=== PATIENT | female | born 1970 | race Caucasian/White ===

== ENCOUNTER 2023-07-05 17:50 | Emergency (ER) | payer MEDICAID ==
[~2023-07-05] VITALS: Ht 170.2 cm; Wt 86.4 kg
[2023-07-05 19:01] VITALS: BP 115/85; PULSE 105; RESP 18; TEMP 98; O2SAT 100
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
--- NOTE | 2023-07-05 22:21 | NUR ---
PATIENT REQUESTING TO LEAVE. LOAN ARRANGED FOR PATIENT.
== END 2023-07-05 22:28 | disposition left against medical advice (07) ==
LOC: ER 17:50 → EEVIPCON 17:50 → ER 22:28
DX: T76.21XA Adult sexual abuse, suspected, initial encounter (principal); F17.200 Nicotine dependence, unspecified, uncomplicated; F31.9 Bipolar disorder, unspecified; F15.10 Other stimulant abuse, uncomplicated; Z56.0 Unemployment, unspecified; Z59.00 Homelessness unspecified
CPT/HCPCS: 99281

== ENCOUNTER 2023-07-06 17:31 | Emergency (ER) | payer MEDICAID ==
[~2023-07-06] VITALS: Ht 170.2 cm; Wt 70.4 kg
[2023-07-06 20:25] LABS: BASOPHILS # (AUTO) 0.1 X10'3 (0-0.2); EOSINOPHILS # (AUTO) 0.2 X10'3 (0-0.9); EOSINOPHILS % (AUTO) 1.7 % (0-6); HEMOGLOBIN 13.6 g/dl (12.0-16.0); LYMPHOCYTES % (AUTO) 32.6 % (21-51); MEAN CORPUSCULAR HEMOGLOBIN 30.2 PG (27.0-31.0); MEAN CORPUSCULAR HGB CONC 33.9 g/dL (33.0-36.5); MEAN CORPUSCULAR VOLUME 88.9 FL (78-98); MEAN PLATELET VOLUME 8.1 FL (7.4-10.4); MONOCYTES # (AUTO) 0.6 X10'3 (0-0.9); MONOCYTES % (AUTO) 5.9 % (2-12); NEUTROPHILS # (AUTO) 5.5 X10'3 (1.8-7.7); NEUTROPHILS % (AUTO) 58.8 % (42-75); PLATELET COUNT 235 X10'3 (140-440); WHITE BLOOD COUNT 9.3 X10'3 (4.5-11.0)
[2023-07-06 20:26] LABS: ALBUMIN 3.4 G/DL (3.4-5.0); ALBUMIN/GLOBULIN RATIO 1.1 (1.1-1.5); ANION GAP 11 (8-16); ASPARTATE AMINO TRANSFERASE 11 U/L (10-37); BILIRUBIN,TOTAL 0.2 MG/DL (0.1-1.0); BLOOD UREA NITROGEN 8 MG/DL (7-18); BUN/CREATININE RATIO 8.3 (10.0-20.0); CALCIUM 8.9 MG/DL (8.5-10.1); CHLORIDE 101 MMOL/L (99-107); CREATININE 0.96 MG/DL (0.40-0.90); GLUCOSE 211 MG/DL (70-104); SODIUM 139 MMOL/L (135-145); TOTAL CARBON DIOXIDE 27.3 MMOL/L (24-32); TOTAL PROTEIN 6.6 G/DL (6.4-8.2); eGFR 61 ML/MIN
[2023-07-06 20:27] LABS: ALANINE AMINOTRANSFERASE 17 U/L (12-78); ALKALINE PHOSPHATASE 113 IU/L (46-116)
[2023-07-06 20:29] LABS: ETHANOL < 10 MG/DL (<10); POTASSIUM 2.9 MMOL/L (3.5-5.1)
--- NOTE | 2023-07-07 01:00 | NUR ---
Patient arrived to ED overflow bed-20 at this time. Performed assessment. Patient reports feeling very tired and being ready to sleep.
[2023-07-07] MEDS ORDERED: POTASSIUM BICARB 20meq eff tab 20 MEQ TABLET.EFF PO ONE (01:05)
[2023-07-07] MEDS ORDERED: Gabapentin (01:34)
[2023-07-07] MEDS ORDERED: LORA2TAB96 PO (01:34)
[2023-07-07] MEDS ORDERED: QUET-1 PO (01:34)
[2023-07-07] MEDS ORDERED: acetaminophen 325mg tablet PO PRN (01:45)
[2023-07-07] MEDS ORDERED: magnesium hydroxide 30ml (MOM) UD suspension PO PRN (01:45)
[2023-07-07] MEDS ORDERED: bisacodyl 5mg tablet.DR PO PRN (01:45)
--- NOTE | 2023-07-07 01:52 | NUR ---
Received orders for Tylenol (pain), Ducolax, and Milk of mag (constipation). Plans to collect urine sample when patient use BR. C/O dysuria and frequency and that she suspects she has a UTI. Pending UA and Tox screen. Med req complete. No reported home meds continued.
--- NOTE | 2023-07-07 02:17 | NUR ---
Administered meds. Patient refused milk of mag offered. Emesis bag placed at bedside. Will continue to monitor.
[2023-07-07 02:40] LABS: URINE HCG NEGATIVE (NEG)
[2023-07-07 02:45] LABS: CLARITY,URINE CLEAR (Clear); COLOR,URINE STRAW (Yellow); GLUCOSE, URINE NEGATIVE (Neg); KETONES,URINE NEGATIVE (Neg); LEUKOCYTE ESTERASE ,URINE TRACE (Neg); NITRITES, URINE NEGATIVE (Neg); OCCULT BLOOD,URINE NEGATIVE (Neg); PROTEIN,URINE NEGATIVE (Neg); UROBILINOGEN,URINE 0.2 E.U/dL (0.2-1.0)
[2023-07-07 02:47] LABS: UA COLLECTION TYPE CLN CATCH MIDSTREAM
[2023-07-07 02:54] LABS: URINE AMPHETAMINE SCREEN POSITIVE (Neg); URINE BARBITUATE SCREEN NEGATIVE (Neg); URINE BENZODIAZEPINES SCREEN NEGATIVE (Neg); URINE CANNABINOID SCREEN POSITIVE (Neg); URINE COCAINE SCREEN NEGATIVE (Neg); URINE METHADONE SCREEN NEGATIVE (Neg); URINE OPIATE SCREEN NEGATIVE (Neg); URINE PHENCYCLIDINE SCREEN NEGATIVE (Neg)
[2023-07-07 02:56] LABS: BACTERIA,URINE FEW /HPF (Neg); MUCUS STRANDS NONE SEEN /LPF (Neg); RBC,URINE 0-2 /HPF (0-2); SQUAMOUS EPITHELIAL CELL,UR NONE SEEN /LPF (FEW); WBC,URINE 0-4 /HPF (0-4)
--- NOTE | 2023-07-07 05:11 | NUR ---
Patient sleeping, appears to be comfortable. Will continue to monitor.
--- NOTE | 2023-07-07 05:25 | NUR ---
record sent to [facility]
--- NOTE | 2023-07-07 06:30 | NUR ---
Assumed care of patient, pt. is sleeping at this time, rise and fall of chest noted.
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
--- NOTE | 2023-07-07 08:26 | NUR ---
Pt. continues to sleep at this time, rr are even and unlabored.
--- NOTE | 2023-07-07 09:27 | NUR ---
Spoke to [facility], they confirmed that they have received the pt.'s packet.
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
--- NOTE | 2023-07-07 09:45 | NUR ---
Pt. denies having any bowl movement, however refuses any further intervention at this time. Upon auscultation she has active bowl sounds X4 quadrants. Pt. is eating well and consuming adequate fluids, will continue to monitor closely.
--- NOTE | 2023-07-07 10:07 | NUR ---
[facility] at bedside evaluating pt. at this time.
--- NOTE | 2023-07-07 10:39 | NUR ---
Met with patient in regards to substance use and to see if patient was interested in resources for treatment options. Patient is interested in resources both in and out patient. I gave patient a list of resources, an application for [facility] card and my card to call me with questions.
--- NOTE | 2023-07-07 10:40 | NUR ---
Pt. continues to sleep at this time, laying on her left side.
--- NOTE | 2023-07-07 10:57 | NUR ---
Pt.'s Personal Phone Numbers: Madeline (daughter) [phone] Gisselle (friend) [phone] Sarah (friend) [phone]
--- NOTE | 2023-07-07 11:35 | NUR ---
This blog writer spoke to Dr. Abdalla to verify that poision control does not need to be contacted at this time due to pt's reported overdose of Seroquel 600mg. This is also pt's reported home medication doseage. Dr. Abdalla advised poison control does not need to be contacted.
--- NOTE | 2023-07-07 12:23 | NUR ---
Pt. continues to sleep at this time, no s/s of discomfort noted.
--- NOTE | 2023-07-07 14:21 | NUR ---
Pt. continues to sleep at this time, rr are even and unlabored. [facility] called to inquire about pt. for possible placement.
--- NOTE | 2023-07-07 14:28 | NUR ---
[facility] called regarding possible placement for pt.
--- NOTE | 2023-07-07 15:54 | NUR ---
Spoke to Cindy from [facility]. Pt. has been accepted to [facility], ETA for machine operator picker is [phone].
--- NOTE | 2023-07-07 16:14 | NUR ---
Received a call from [facility] pt. has been accepted and will be picked up at approximately [phone]. Will endorse to Noc shift.
--- NOTE | 2023-07-07 16:26 | NUR ---
Pt. awoke and began yelling out in a disorganized and anxious manner, stating, "No one ever helps me! 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 I need my medicine!" This jingle writer offered active listening and positive encouragement and pt. was able to call down, however is requesting some medication for anxiety. Will endorse to
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
[2023-07-07 17:25] VITALS: BP 107/76; PULSE 77; RESP 12; TEMP 97.6; O2SAT 96
[2023-07-07] MEDS ORDERED: LORazepam 1 MG tablet PO ONE (18:50)
--- NOTE | 2023-07-07 19:25 | NUR ---
Received report from Asuncion Hubbard RN at 18:15. Client was awake and resting in Bed 20. Respirations were even and unlabored. At 18:45 Client c/o of anxiety and stated "I tried to overdose on Seroquel, so they won't give it to me now." Dr Soto ordered 1 mg Ativan Tab PO for anxiety. Client accepted med at 18:50. Lycic-jn-Jprsk report was given to ANIA Steven at [facility]. Personal belongings were returned to client. Client was cooperative. Client exited facility with [employer], [facility] [employer] ([facility]) and [facility] at 19:25.
== END 2023-07-07 19:25 ==
LOC: ER 17:32
DX: R45.851 Suicidal ideations (principal); Z20.822 Contact with and (suspected) exposure to COVID-19; F32.A Depression, unspecified; E87.6 Hypokalemia; F15.90 Other stimulant use, unspecified, uncomplicated; Z56.0 Unemployment, unspecified; Z59.00 Homelessness unspecified
CPT/HCPCS: 36415; 80053; 80305; 80320; 81001; 81025; 85025; 87811; 99285

== ENCOUNTER 2023-07-17 09:30 | Emergency (ER) | payer MEDICAID ==
[~2023-07-17] VITALS: Ht 172.7 cm; Wt 75.0 kg
[2023-07-17 09:33] VITALS: BP 134/84; PULSE 108; RESP 16; TEMP 98.4; O2SAT 99
[2023-07-17 11:21] LABS: BASOPHILS # (AUTO) 0.2 X10'3 (0-0.2); BASOPHILS % (AUTO) 1.3 % (0-1); EOSINOPHILS # (AUTO) 0.2 X10'3 (0-0.9); EOSINOPHILS % (AUTO) 1.5 % (0-6); HEMATOCRIT 41.5 % (35.0-45.0); LYMPHOCYTES # (AUTO) 3.4 X10'3 (1.1-4.8); LYMPHOCYTES % (AUTO) 21.3 % (21-51); MEAN CORPUSCULAR HEMOGLOBIN 29.9 PG (27.0-31.0); MEAN CORPUSCULAR HGB CONC 33.8 g/dL (33.0-36.5); MEAN CORPUSCULAR VOLUME 88.6 FL (78-98); MEAN PLATELET VOLUME 7.7 FL (7.4-10.4); MONOCYTES # (AUTO) 1.1 X10'3 (0-0.9); MONOCYTES % (AUTO) 7.2 % (2-12); NEUTROPHILS # (AUTO) 10.9 X10'3 (1.8-7.7); NEUTROPHILS % (AUTO) 68.7 % (42-75); PLATELET COUNT 296 X10'3 (140-440); RED BLOOD COUNT 4.69 X10'6 (4.20-5.60); RED CELL DISTRIBUTION WIDTH 13.4 % (11.5-14.5); WHITE BLOOD COUNT 15.9 X10'3 (4.5-11.0)
[2023-07-17 11:38] LABS: ALANINE AMINOTRANSFERASE 21 U/L (12-78); ALBUMIN 4.1 G/DL (3.4-5.0); ALBUMIN/GLOBULIN RATIO 1.1 (1.1-1.5); ALKALINE PHOSPHATASE 130 IU/L (46-116); ANION GAP 11 (8-16); ASPARTATE AMINO TRANSFERASE 19 U/L (10-37); BILIRUBIN,TOTAL 1.2 MG/DL (0.1-1.0); BLOOD UREA NITROGEN 19 MG/DL (7-18); BUN/CREATININE RATIO 20.7 (10.0-20.0); CALCIUM 9.7 MG/DL (8.5-10.1); CHLORIDE 100 MMOL/L (99-107); CREATININE 0.92 MG/DL (0.40-0.90); GLUCOSE 105 MG/DL (70-104); SODIUM 137 MMOL/L (135-145); TOTAL CARBON DIOXIDE 25.6 MMOL/L (24-32); TOTAL PROTEIN 7.9 G/DL (6.4-8.2); eCRCL 73 ML/MIN; eGFR 64 ML/MIN
[2023-07-17 11:39] LABS: POTASSIUM 2.8 MMOL/L (3.5-5.1)
--- NOTE | 2023-07-17 11:43 | NUR ---
lab called, patient had a potassium of 2.8. MD notified.
== END 2023-07-17 11:08 | disposition home or self-care (01) ==
LOC: ER 09:30
DX: F41.9 Anxiety disorder, unspecified (principal); F31.9 Bipolar disorder, unspecified; F15.90 Other stimulant use, unspecified, uncomplicated
CPT/HCPCS: 80053; 85025; 99284

== ENCOUNTER 2023-07-19 15:17 | Emergency (ER) | payer MEDICAID ==
[~2023-07-19] VITALS: Ht 170.2 cm; Wt 69.2 kg
[2023-07-19 15:39] VITALS: BP 96/67; PULSE 83; RESP 16; TEMP 98; O2SAT 100
[2023-07-19] MEDS ORDERED: ketorolac tromethamine 15mg/ml inj. IM ONE (17:35)
[2023-07-19] MEDS ORDERED: NAPR-56 PO (17:35)
== END 2023-07-19 18:05 | disposition home or self-care (01) ==
LOC: ER 15:17
DX: S93.401A Sprain of unspecified ligament of right ankle, initial encounter (principal); F31.9 Bipolar disorder, unspecified; F15.90 Other stimulant use, unspecified, uncomplicated; W19.XXXA Unspecified fall, initial encounter; Y93.89 Activity, other specified; Y92.89 Other specified places as the place of occurrence of the external cause; Y99.8 Other external cause status
CPT/HCPCS: 96372; 99283; J1885; A6449

== ENCOUNTER 2023-08-04 17:09 | Emergency (ER) | payer MEDICAID ==
[~2023-08-04] VITALS: Ht 170.2 cm; Wt 81.8 kg
[~2023-08-04 17:09] MED LIST: NAPR-56 PO
[2023-08-04 17:47] VITALS: TEMP 98.1
[2023-08-04] MEDS ORDERED: ondansetron 4mg rapidly disintigrating tab PO ONE (18:50)
[2023-08-04] MEDS ORDERED: normal saline 1000ML IV soln IVB ONE (18:50)
[2023-08-04 19:01] LABS: BILIRUBIN,URINE SMALL (Neg); CLARITY,URINE SLIGHTLY CLOUDY (Clear); COLOR,URINE YELLOW (Yellow); GLUCOSE, URINE NEGATIVE (Neg); KETONES,URINE NEGATIVE (Neg); LEUKOCYTE ESTERASE ,URINE NEGATIVE (Neg); NITRITES, URINE NEGATIVE (Neg); OCCULT BLOOD,URINE TRACE-INTACT (Neg); PH,URINE 5.5 (4.8-8.0); PROTEIN,URINE TRACE mg/dl (Neg)
[2023-08-04 19:10] LABS: UA COLLECTION TYPE CLN CATCH MIDSTREAM
[2023-08-04 19:13] LABS: BACTERIA,URINE 2+ /HPF (Neg); HYALINE CASTS 0-3 /LPF (NEGATIVE); RBC,URINE 0-2 /HPF (0-2); SQUAMOUS EPITHELIAL CELL,UR FEW /LPF (FEW)
[2023-08-04 19:15] LABS: URINE AMPHETAMINE SCREEN POSITIVE (Neg); URINE BARBITUATE SCREEN NEGATIVE (Neg); URINE BENZODIAZEPINES SCREEN NEGATIVE (Neg); URINE CANNABINOID SCREEN POSITIVE (Neg); URINE COCAINE SCREEN NEGATIVE (Neg); URINE METHADONE SCREEN NEGATIVE (Neg); URINE OPIATE SCREEN NEGATIVE (Neg); URINE PHENCYCLIDINE SCREEN NEGATIVE (Neg)
--- NOTE | 2023-08-04 19:30 | NUR ---
RELIEVING RN FOR BREAK, PT IS RESTING QUIETLY ON KEVIN MÉNDEZ WELL, REFUSING IV AT THIS TIME, "JUST GIVE ME ICE AND WATER"
--- NOTE | 2023-08-04 19:51 | NUR ---
PT DRINKING WATER, KEVIN WELL, NO N/V,
--- NOTE | 2023-08-04 20:00 | NUR ---
DR FERMIN SHAFFER PT IS DRINKING WATER AND HAS NO IV. REPORT TO LIZBETH PALM
[2023-08-04 21:36] LABS: EOSINOPHILS # (AUTO) 0.2 X10'3 (0-0.9); RED CELL DISTRIBUTION WIDTH 13.5 % (11.5-14.5)
[2023-08-04 21:38] LABS: BASOPHILS # (AUTO) 0.1 X10'3 (0-0.2); BASOPHILS % (AUTO) 0.8 % (0-1); EOSINOPHILS % (AUTO) 1.8 % (0-6); HEMOGLOBIN 15.1 g/dl (12.0-16.0); LYMPHOCYTES # (AUTO) 3.6 X10'3 (1.1-4.8); LYMPHOCYTES % (AUTO) 37.5 % (21-51); MEAN CORPUSCULAR HGB CONC 33.6 g/dL (33.0-36.5); MEAN CORPUSCULAR VOLUME 89.3 FL (78-98); MEAN PLATELET VOLUME 7.6 FL (7.4-10.4); MONOCYTES # (AUTO) 0.7 X10'3 (0-0.9); MONOCYTES % (AUTO) 7.8 % (2-12); NEUTROPHILS # (AUTO) 4.9 X10'3 (1.8-7.7); NEUTROPHILS % (AUTO) 52.1 % (42-75); PLATELET COUNT 259 X10'3 (140-440); RED BLOOD COUNT 5.04 X10'6 (4.20-5.60); WHITE BLOOD COUNT 9.5 X10'3 (4.5-11.0)
[2023-08-04 21:49] LABS: ALANINE AMINOTRANSFERASE 20 U/L (12-78); ALKALINE PHOSPHATASE 144 IU/L (46-116); ANION GAP 7 (8-16); ASPARTATE AMINO TRANSFERASE 15 U/L (10-37); BILIRUBIN,TOTAL 0.6 MG/DL (0.1-1.0); BLOOD UREA NITROGEN 9 MG/DL (7-18); BUN/CREATININE RATIO 11.4 (10.0-20.0); CALCIUM 9.7 MG/DL (8.5-10.1); CHLORIDE 95 MMOL/L (99-107); CREATININE 0.79 MG/DL (0.40-0.90); GLUCOSE 91 MG/DL (70-104); LIPASE 218 U/L (73-393); POTASSIUM 3.1 MMOL/L (3.5-5.1); SODIUM 135 MMOL/L (135-145); TOTAL CARBON DIOXIDE 32.9 MMOL/L (24-32); TOTAL PROTEIN 7.9 G/DL (6.4-8.2); eCRCL 82 ML/MIN; eGFR 77 ML/MIN
[2023-08-04] MEDS ORDERED: POTASSIUM BICARB 20meq eff tab 20 MEQ TABLET.EFF PO SCH (22:50)
[2023-08-04] MEDS ORDERED: FOSFOMYCIN TROMETHAMINE 3 GM PACKET PO ONE (22:50)
[2023-08-04] MEDS ORDERED: magnesium 2GM in 50ml NS 50 ML IV ONE (22:50)
[2023-08-04 23:03] LABS: MAGNESIUM 1.9 MG/DL (1.5-2.4)
[2023-08-05] MEDS ORDERED: ONDA4TAB12 PO ×2 (00:12→00:16)
[2023-08-05] MEDS ORDERED: normal saline 1000ml 1,000 ML IV ONE (01:05)
[2023-08-05 02:21] VITALS: BP 92/59; PULSE 68; RESP 18; O2SAT 98
== END 2023-08-05 04:26 | disposition home or self-care (01) ==
LOC: ER 17:09
DX: N39.0 Urinary tract infection, site not specified (principal); R51.9 Headache, unspecified; R11.2 Nausea with vomiting, unspecified; R10.84 Generalized abdominal pain; E87.6 Hypokalemia; F15.10 Other stimulant abuse, uncomplicated; Z56.0 Unemployment, unspecified; Z59.00 Homelessness unspecified; Z79.899 Other long term (current) drug therapy
CPT/HCPCS: 36415; 80053; 80305; 81001; 83690; 83735; 85025; 87088; 93005; 96361; 96365; 99285; J3475; J7030

== ENCOUNTER 2023-09-02 08:48 | Emergency (ER) | payer MEDICAID ==
[~2023-09-02] VITALS: Ht 170.2 cm; Wt 72.7 kg
[~2023-09-02 08:48] MED LIST changes: -NAPR-56 PO; +ONDA4TAB12 PO
[2023-09-02 09:07] VITALS: BP 123/91; PULSE 87; RESP 18; O2SAT 100
[2023-09-02] MEDS ORDERED: AZIT250T27 PO (09:52)
[2023-09-02] MEDS ORDERED: PRED20TA PO (09:52)
[2023-09-02] MEDS ORDERED: ALBU18HF2 INH (09:52)
[2023-09-02] MEDS ORDERED: OLAN10TA21 PO (09:52)
[2023-09-02] MEDS ORDERED: LITH300C PO (09:52)
[2023-09-02 10:05] VITALS: TEMP 98.5
== END 2023-09-02 10:07 | disposition home or self-care (01) ==
LOC: ER 08:49
DX: J44.1 Chronic obstructive pulmonary disease with (acute) exacerbation (principal); F31.9 Bipolar disorder, unspecified; F15.90 Other stimulant use, unspecified, uncomplicated; Z79.899 Other long term (current) drug therapy; Z79.2 Long term (current) use of antibiotics
CPT/HCPCS: 99283

== ENCOUNTER 2023-09-13 11:40 | Emergency (ER) | payer MEDICAID ==
[~2023-09-13] VITALS: Ht 170.2 cm; Wt 72.7 kg
[~2023-09-13 11:40] MED LIST changes: +ALBU18HF2 INH; +LITH300C PO; +OLAN10TA21 PO
[2023-09-13 12:15] VITALS: RESP 18
--- NOTE | 2023-09-13 12:26 | NUR ---
PT HAS MOUTH SORES.
[2023-09-13 12:56] LABS: STREP A SCREEN NEGATIVE (Neg)
[2023-09-13 15:12] VITALS: BP 107/76; PULSE 76; TEMP 97.8; O2SAT 99
[2023-09-13] MEDS ORDERED: dexamethasone sod phosphate 10mg/ml inj PO STA (16:57)
[2023-09-13] MEDS ORDERED: DOXY-356 PO (17:00)
[2023-09-13] MEDS ORDERED: PHEN-824 PO (17:00)
[2023-09-13] MEDS ORDERED: dexamethasone sod phosphate 10mg/ml inj IM STA (17:12)
== END 2023-09-13 17:22 | disposition home or self-care (01) ==
LOC: ER 11:40
DX: J06.9 Acute upper respiratory infection, unspecified (principal); F31.9 Bipolar disorder, unspecified; J44.9 Chronic obstructive pulmonary disease, unspecified; F15.10 Other stimulant abuse, uncomplicated; Z59.00 Homelessness unspecified; Z56.0 Unemployment, unspecified; Z79.899 Other long term (current) drug therapy
CPT/HCPCS: 87081; 87880; 96372; 99283; J1100

== ENCOUNTER → 2023-10-23 | Emergency (ER) | payer MEDICAID ==
[~2023-10-23] VITALS: Ht 170.2 cm; Wt 81.1 kg
[~2023-10-23] MED LIST changes: +BENZ-38 PO; +CEFD300C3 PO; +PHEN-824 PO; +ketorolac trometh inj. 60 MG/2 ML VIAL IM ONE
[2023-10-23 17:24] VITALS: BP 110/68; PULSE 65; RESP 16; TEMP 98.5; O2SAT 98
--- NOTE | 2023-10-23 18:43 | NUR ---
I have reviewed and agree with all interventions, assessments performed and documented by Emelia MENDOZA LVN.
== END | disposition home or self-care (01) ==
LOC: ER 14:46
DX: J40 Bronchitis, not specified as acute or chronic (principal)
CPT/HCPCS: 96372; 99283; J1885